=== PATIENT | male | born 1975 | race Asian ===

== ENCOUNTER 2022-04-10 23:46 | Emergency (ER) | payer BC ==
[~2022-04-10] VITALS: Ht 175.3 cm; Wt 74.8 kg
[2022-04-11 02:00] VITALS: BP 111/69; TEMP 98.6
== END 2022-04-11 02:05 | disposition home or self-care (01) ==
LOC: ED 23:46
DX: L03.115 Cellulitis of right lower limb (principal)
CPT/HCPCS: 96372; 99283; J0696; J1885